=== PATIENT | female | born 1995 | race Caucasian/White ===

== ENCOUNTER 2018-02-12 16:31 | Emergency (ER) | payer OTHER ==
--- NOTE | 2018-02-12 16:57 | ER Report ---
History and Physical Time Seen By MD: 16:57 Hx. of Stated Complaint: PATIENT WENT IN ON FRIDAY FOR STREP THOAT; STATES THAT TEST WAS NEGATIVE; ON FRIDAY PATIENT STARTED GETTING A RASH, WENT BACK TO [facility], THEY TREATED HER WITH AN ANTIBIOTIC "LIKE SHE HAD STREP" EVEN THOUGH THE TEST WAS NEGATIVE. HPI/ROS CHIEF COMPLAINT: Rash HISTORY OF PRESENT ILLNESS: 22-year-old female patient presents to emergency room with complaint of rash. Patient states that she had a sore throat on Friday. She went to the urgent care and was tested for strep. She tested negative. She states the next day she developed a rash returned to the urgent care. At that time I started her on azithromycin, as she does have an allergy to penicillins, for "strep like symptoms". She states that she has started that antibiotics that day. She states that she has had worsening of her rash. She states that she has rash that is all over. She states it is very itchy. She states there is nothing seems to help. Allergies: Coded Allergies: Penicillins (Verified Allergy, Unknown, 02/12/18) Home Meds Active Scripts Hydroxyzine Hcl (HYDROXYZINE HCL) 25 Mg Tablet, 25 MG PO Q6H Y for ITCHING, #30 TAB Prov:JOSE CARLOS JEAN [facility] 02/12/18 Prednisone (PREDNISONE) 20 Mg Tablet, 40 MG PO DAILY, #10 TAB Prov:JOSE CARLOS JEAN [facility] 02/12/18 Reported Medications Azithromycin (ZITHROMAX) 250 Mg Tablet, 500 TAB PO QDAY, TAB 02/12/18 Past Medical/Surgical History Patient has a past medical history of occasional alcohol use, anxiety. Patient has surgical history wisdom teeth removed. Reviewed Nurses Notes: Yes Hx Substance Use Disorder: No Hx Alcohol Use: Yes (OCC.) Constitutional Vital Sign - Last 24 Hours 02/12/18 02/12/18 16:49 17:50 Temp 97.8 Pulse 71 78 Resp 18 18 B/P (MAP) 124/71 111/74 (86) Pulse Ox 97 98 O2 Delivery Room Air Room Air Physical Exam General appearance: Alert no distress. Respiratory: Chest is non tender, lungs are clear to auscultation. Cardiac: Regular rate and rhythm. Skin: Patient has an elevated rash that shows papular rash throughout the torso , lower and upper extremities. He had did have some lesions on the hand, does have what appears to be a strawberry appearing tongue. DIFFERENTIAL DIAGNOSIS: After history and physical exam differential diagnosis was considered for scarlatina rash, adverse reaction to medications, viral syndrome with a viral exanthem. Medical Decision Making ED Course/Re-evaluation ED Course Patient was medicated exam room, history and physical were obtained. Differential diagnoses were considered. On examination patient does have tonsillar exudate, she does have enlarged lymph nodes, she also has a raised papular rash diffusely on her body. Is slightly rough to the field. With her recent diagnosis of strep throat and development of the rash just prior to that I do believe that this is likely a scarlatina rash. Patient is currently being treated for strep throat with azithromycin. We'll go ahead and have her continue that. We will also add hydroxyzine to help with the itching as well as prednisone to hopefully: The rash down. Patient is to follow-up with her primary care provider early next week. She is return to emergency room if condition worsens. I discussed this with the patient who verbalized understanding and agreement with plan. Decision to Disposition Date: Feb 12, 2018 Decision to Disposition Time: 17:40 Depart Departure Latest Vital Signs Vital Signs Date Time Temp Pulse Resp B/P (MAP) Pulse Ox O2 Delivery O2 Flow Rate FiO2 02/12/18 17:50 78 18 111/74 (86) 98 Room Air 02/12/18 16:49 97.8 Impression: Primary Impression: Scarlatiniform eruption, generalized Condition: Improved Disposition: HOME OR SELF-CARE New Scripts Hydroxyzine Hcl (HYDROXYZINE HCL) 25 Mg Tablet 25 MG PO Q6H Y for ITCHING, #30 TAB Prov: JOSE CARLOS JEAN 02/12/18 Prednisone (PREDNISONE) 20 Mg Tablet 40 MG PO DAILY, #10 TAB Prov: JOSE CARLOS JEAN 02/12/18 Patient Instructions: Acute Rash (ED) Additional Instructions: Increase fluid intake. Get plenty of rest. Limit activity by how you feel. Return to the ER if condition worsens. Follow up with your primary care provider in the early part of next week. Continue with your antibiotics. JOSE CARLOS JEAN Feb 12, 2018 16:57
[2018-02-12] MEDS ORDERED: AZIT-1 PO (16:59)
[2018-02-12] MEDS ORDERED: HYDR-4225 PO (17:38)
[2018-02-12] MEDS ORDERED: PRED20TA6 PO (17:38)
[2018-02-12 17:50] VITALS: BP 111/74
== END 2018-02-12 17:53 | disposition home or self-care (01) ==
LOC: ER 16:49
DX: R21 Rash and other nonspecific skin eruption (principal)
CPT/HCPCS: 99281